=== PATIENT | male | born 1985 | race Hispanic/Latino ===

== ENCOUNTER 2018-11-26 23:31 | Emergency (ER) | payer OTHER ==
[~2018-11-26] VITALS: Ht 182.9 cm; Wt 126.1 kg
[2018-11-26] MEDS ORDERED: FENTANYL CITRATE/PF 100MCG/2 ML INJ IV ONE (23:45)
[2018-11-26] MEDS ORDERED: PROPOFOL IV EMULSION 10 MG/ML 20 ML VIAL IV ONE (23:45)
--- NOTE | 2018-11-27 00:20 | NUR ---
50 mg propofol administered ivp by JOHN ISSA
[2018-11-27] MEDS ORDERED: SODIUM CHLORIDE 0.9% 1000ML 1,000 ML ONE (00:22)
--- NOTE | 2018-11-27 00:27 | NUR ---
50 mg proprofol ivp administered by er md; pt tolerated well
--- NOTE | 2018-11-27 00:28 | NUR ---
rad called for xray
[2018-11-27] MEDS ORDERED: PROPOFOL IV EMULSION 10 MG/ML 20 ML VIAL ONE (00:30)
--- NOTE | 2018-11-27 02:15 | Diagnostic Imaging Report ---
Shoulder complete CPT code: 35490 Indication: Dislocation. Technique: Internal, external and Y-view of left shoulder obtained. Comparison: None. Findings: There is no current dislocation. No evidence of fracture involving humeral head. Visualized proximal shaft is intact. The clavicle is intact. The clavicle and acromion are properly aligned. No fracture evident involving the visualized portion of the scapula. IMPRESSION: No evidence of acute fracture or dislocation involving the shoulder on provided images. Consider axillary view for confirmation of alignment. Signed by: Dr. Juan Garcia MD on 11/27/2018 2:12 AM
[2018-11-27 02:27] VITALS: BP 116/79
[2018-11-27] MEDS ORDERED: ULTRAM 50MG50 MG PO (02:27)
== END 2018-11-27 02:36 | disposition home or self-care (01) ==
LOC: ER 23:31
DX: S43.015A Anterior dislocation of left humerus, initial encounter (principal); X50.1XXA Overexertion from prolonged static or awkward postures, initial encounter; Y92.008 Other place in unspecified non-institutional (private) residence as the place of occurrence of the external cause
CPT/HCPCS: 23650; 73030; 99283; J2704; J7030

== ENCOUNTER 2019-01-13 08:44 | Outpatient (RCR) | payer OTHER ==
[~2019-01-13 08:44] MED LIST: ULTRAM 50MG50 MG PO
== END 2019-02-05 ==
LOC: OT 08:44
PROVIDERS: ATTEND Specialist
DX: M25.512 Pain in left shoulder (principal); M25.511 Pain in right shoulder; M25.612 Stiffness of left shoulder, not elsewhere classified; M25.611 Stiffness of right shoulder, not elsewhere classified; M25.312 Other instability, left shoulder; M25.311 Other instability, right shoulder